=== PATIENT | male | born 1970 | race Caucasian/White ===

== ENCOUNTER → 2020-09-04 | Outpatient (CLI) | payer OTHER ==
[~2020-09-04] MED LIST: FLEXERIL 10 MG10 MG PO; IBUPROFEN600 MG PO
== END ==
LOC: EXRD 08-20 08:30 → US 10:00
DX: B19.20 Unspecified viral hepatitis C without hepatic coma (principal); R16.1 Splenomegaly, not elsewhere classified; K82.8 Other specified diseases of gallbladder
CPT/HCPCS: 76700

== ENCOUNTER → 2021-02-17 | Outpatient (CLI) | payer OTHER | LOC: RAD 11:13 | DX: M47.812 Spondylosis without myelopathy or radiculopathy, cervical region (principal); M25.511 Pain in right shoulder | CPT/HCPCS: 72050; 73030 ==

== ENCOUNTER → 2021-08-15 | Outpatient (CLI) | payer OTHER | LOC: EXRD 09:00 | DX: K74.60 Unspecified cirrhosis of liver (principal); R10.9 Unspecified abdominal pain; R16.1 Splenomegaly, not elsewhere classified; M75.41 Impingement syndrome of right shoulder | CPT/HCPCS: 73030; 76700 ==